=== PATIENT | female | born 1975 | race Caucasian/White ===

== ENCOUNTER 2016-12-29 03:16 | Emergency (ER) | payer SELFPAY ==
[2016-12-29] MEDS ORDERED: HYDROcodone/Acetaminophen 10/325 mg Tablet ONE (03:48)
[2016-12-29] MEDS ORDERED: Azithromycin 250 MG TAB ONE (03:49)
[2016-12-29] MEDS ORDERED: Naproxen 500 MG TAB ONE (03:49)
[2016-12-29] MEDS ORDERED: Lorazepam 1 MG TAB ONE (04:01)
== END 2016-12-29 04:03 | disposition home or self-care (01) ==
LOC: MADERS 03:16
DX: K11.3 Abscess of salivary gland (principal); F32.9 Major depressive disorder, single episode, unspecified; F17.210 Nicotine dependence, cigarettes, uncomplicated
CPT/HCPCS: 99283

== ENCOUNTER 2017-06-16 21:32 | Emergency (ER) | payer SELFPAY ==
[2017-06-16] MEDS ORDERED: Ondansetron ODT 4 MG TAB ONE (22:04)
[2017-06-16] MEDS ORDERED: Diazepam 5 MG TAB ONE (22:04)
[2017-06-16] MEDS ORDERED: AMOXicillin 250 MG CAP ONE (22:04)
== END 2017-06-16 22:40 | disposition home or self-care (01) ==
LOC: MADERS 21:32
DX: K04.7 Periapical abscess without sinus (principal); F17.210 Nicotine dependence, cigarettes, uncomplicated; F32.9 Major depressive disorder, single episode, unspecified
CPT/HCPCS: 96372; J2270; Q0162

== ENCOUNTER 2017-11-06 16:06 | Emergency (ER) | payer SELFPAY ==
[~2017-11-06 16:06] MED LIST: Lidocaine 1% 20 ML MDV ONE
[2017-11-06 17:17] LABS: Wet Prep Clue Cells Clue Cells Absent (None Seen); Wet Prep Pathologist Review Spermatozoa Absent (None Seen); Wet Prep Spermatozoa 2nd Revie Agree with result (None Seen); Wet Prep Trichomonas Trichomonas Absent (None Seen)
[2017-11-06] MEDS ORDERED: Azithromycin 250 MG TAB ONE (17:43)
[2017-11-06] MEDS ORDERED: cefTRIAXone\\ROCEPHIN 1 GM VIAL ONE (17:43)
[2017-11-06 18:29] LABS: Bacteria/HPF Rare-Few HPF (None Seen); Bilirubin Negative (Negative); Blood, Urine Trace (Negative); Clarity Hazy (Clear); Glucose, Urine (Dipstick) Negative (Negative); Leukocyte Negative (Negative); Nitrite Negative (Negative); Protein, Urine (Dipstick) Negative (Neg-Trace); RBC/HPF 0-3 HPF (0-3); Specific Gravity, Urine 1.005 (1.002-1.036); Squamous Epithelial 0-3 HPF (0-3); Urobilinogen 0.2 mg/dL (0.2-1.0); WBC/HPF None Seen HPF (0-3)
[2017-11-06 18:30] LABS: Pregnancy Test - Urine (BHCG) Negative (Negative); Pregu Control Background? CLEAR/WHITE (CLR/WHITE); Pregu Control Bar Appear? YES (CONTROL BAR); Specific Gravity 1.005 (1.002-1.036)
== END 2017-11-06 18:39 | disposition home or self-care (01) ==
LOC: MADERS 16:06
DX: N89.8 Other specified noninflammatory disorders of vagina (principal); F41.9 Anxiety disorder, unspecified; F32.9 Major depressive disorder, single episode, unspecified; F17.210 Nicotine dependence, cigarettes, uncomplicated
CPT/HCPCS: 81003; 81015; 81025; 87210; 87220; 87491; 87591; 96372; J0696; J2001

== ENCOUNTER 2020-07-15 17:00 | Emergency (ER) | payer SELFPAY ==
[2020-07-15] MEDS ORDERED: metroNIDAZOLE 250 MG TAB ONE (17:54)
[2020-07-15] MEDS ORDERED: cefTRIAXone\\ROCEPHIN 250 MG VIAL ONE (17:54)
[2020-07-15] MEDS ORDERED: Azithromycin 250 MG TAB ONE (17:54)
[2020-07-15] MEDS ORDERED: Lidocaine 1% 20 ML MDV ONE (17:55)
[2020-07-15 18:02] LABS: Bilirubin Negative (Negative); Blood, Urine Negative (Negative); Clarity Clear (Clear); Glucose, Urine (Dipstick) Negative (Negative); Ketone, Urine Negative (Negative); Leukocyte Negative (Negative); Nitrite Negative (Negative); Protein, Urine (Dipstick) Negative (Neg-Trace); Urobilinogen 0.2 mg/dL (Less than 2); pH, Urine 5.5 (5.0-9.0)
[2020-07-15 18:04] LABS: Pregnancy Test - Urine (BHCG) Negative (Negative); Pregu Control Background? CLEAR/WHITE (CLR/WHITE); Pregu Control Bar Appear? YES (CONTROL BAR); Specific Gravity 1.032 (1.002-1.036)
[2020-07-19 18:29] LABS: Chlamydia by PCR Not Detected (NotDetected); GC by PCR Not Detected (NotDetected)
== END 2020-07-15 18:50 | disposition home or self-care (01) ==
LOC: MADERS 17:00
DX: N89.8 Other specified noninflammatory disorders of vagina (principal); F41.9 Anxiety disorder, unspecified; F32.9 Major depressive disorder, single episode, unspecified; F17.210 Nicotine dependence, cigarettes, uncomplicated
CPT/HCPCS: 81003; 81025; 87480; 87491; 87510; 87591; 87660; 96372; 96374; J0696

== ENCOUNTER 2020-12-18 23:26 | Emergency (ER) | payer SELFPAY ==
[2020-12-19] MEDS ORDERED: Morphine 4 MG/ML VIAL ONE (00:09)
[2020-12-19] MEDS ORDERED: Morphine 2 MG/ML VIAL ONE (00:09)
== END 2020-12-19 00:30 | disposition short-term general hospital (02) ==
LOC: MADERS 23:26
DX: S60.444A External constriction of right ring finger, initial encounter (principal); F17.210 Nicotine dependence, cigarettes, uncomplicated; W49.04XA Ring or other jewelry causing external constriction, initial encounter
CPT/HCPCS: 99284; J2270

== ENCOUNTER 2022-10-02 18:26 | Emergency (ER) | payer SELFPAY ==
[2022-10-02] MEDS ORDERED: Ibuprofen 800 MG TAB ONE (20:15)
[2022-10-02] MEDS ORDERED: Acetaminophen 500 MG TAB ONE (20:15)
== END 2022-10-02 20:55 | disposition home or self-care (01) ==
LOC: MADERS 18:26
DX: S01.311A Laceration without foreign body of right ear, initial encounter (principal); E03.9 Hypothyroidism, unspecified; F17.210 Nicotine dependence, cigarettes, uncomplicated; Y04.0XXA Assault by unarmed brawl or fight, initial encounter
CPT/HCPCS: 70450; 70486

== ENCOUNTER 2022-10-14 08:20 | Emergency (ER) | payer SELFPAY ==
[2022-10-14] MEDS ORDERED: Amoxicillin/Potassium Clav 875 MG TAB ONE (08:44)
[2022-10-14] MEDS ORDERED: Ketorolac Tromethamine 60 MG/2 ML VIAL ONE (08:44)
== END 2022-10-14 09:06 | disposition home or self-care (01) ==
LOC: MADERS 08:20
DX: H60.91 Unspecified otitis externa, right ear (principal); E03.9 Hypothyroidism, unspecified; F17.210 Nicotine dependence, cigarettes, uncomplicated
CPT/HCPCS: 96372; 99282; J1885

== ENCOUNTER 2024-09-24 19:20 | Emergency (ER) | payer BC, SELFPAY ==
[2024-09-24 20:05] LABS: #Basophils 0.1 thou/uL (0.0-0.2); #Eosinophils 0.2 thou/uL (0.0-0.7); #Monocytes 0.4 thou/uL (0.11-0.59); #Neutrophils 3.3 thou/uL (1.40-6.50); %Basophils 1.4 % (0.0-1.0); %Lymphocytes 33.4 % (21.0-51.0); %Neutrophils 55.3 % (42.0-75.0); Hematocrit 32.9 % (36.0-47.0); Mean Corpuscular HGB CONC 36.4 g/dL (32.0-36.0); Mean Corpuscular Hemoglobin 33.4 pg (27.0-31.0); Mean Corpuscular Volume 91.7 fl (78.0-98.0); Mean Platelet Volume 7.4 fL (7.4-10.4); Platelet Count 276 10x3/uL (130-400); RBC Distribution Width 12.1 % (11.5-14.5); Red Blood Cell (RBC) Count 3.59 mill/uL (4.20-5.40); White Blood Cell (WBC) Count 5.9 10x3/uL (4.8-10.8)
[2024-09-24] MEDS ORDERED: Acetaminophen 500 MG TAB ONE (20:16)
[2024-09-24 20:27] LABS: ALT (SGPT) 12 U/L (Less than 34); AST (SGOT) 18 U/L (11-34); Alkaline Phosphatase 70 U/L (40-110); Anion Gap 13 mmol/L (10-20); BUN (Urea Nitrogen) 10 mg/dL (9.8-20.1); Bilirubin, Total 0.1 mg/dL (0.3-1.2); CK (CPK) 99 U/L (29-168); Calc. Creatinine Clearance 0 mL/min (70-130); Carbon Dioxide 27 mmol/L (22-29); Chloride 106 mmol/L (98-107); Estimated GFR 64; Globulin 2.7 g/dL (2.4-3.5); Glucose 94 mg/dL (70-105); Magnesium 2.1 mg/dL (1.6-2.6); Potassium 4.4 mmol/L (3.5-5.1); Protein, Total 6.7 g/dL (6.0-8.3); Sodium 142 mmol/L (136-145); Troponin I Less than 0.010 ng/mL (< 0.028)
== END 2024-09-24 21:15 | disposition home or self-care (01) ==
LOC: MADERS 19:20
DX: S06.0X0A Concussion without loss of consciousness, initial encounter (principal); R55 Syncope and collapse; F17.290 Nicotine dependence, other tobacco product, uncomplicated; W18.30XA Fall on same level, unspecified, initial encounter
CPT/HCPCS: 70450; 71045; 80053; 82550; 83735; 84443; 84484; 85025; 87428; 93005; 94760